=== PATIENT | male | born 1955 | race Caucasian/White ===

== ENCOUNTER 2023-08-14 10:30 | Outpatient (CLI) | payer MEDICARE, MEDICAID | END 2023-08-14 10:31 | disposition home or self-care (01) | LOC: CSHWCC 10:30 | PROVIDERS: ATTEND Physician Assistant | DX: I89.0 Lymphedema, not elsewhere classified (principal) | CPT/HCPCS: 99205; G0463 ==

== ENCOUNTER 2023-09-14 11:35 | Outpatient (CLI) | payer MEDICARE, MEDICAID | END 2023-09-14 11:36 | disposition home or self-care (01) | LOC: CSHWCC 11:35 | PROVIDERS: ATTEND Preventive Medicine Undersea and Hyperbaric Medicine | DX: I89.0 Lymphedema, not elsewhere classified (principal) | CPT/HCPCS: 97597; 97598 ==

== ENCOUNTER 2023-09-16 11:51 | Outpatient (CLI) | payer MEDICARE, MEDICAID | END 2023-09-16 11:52 | disposition home or self-care (01) | LOC: CSHWCC 11:51 | PROVIDERS: ATTEND Preventive Medicine Undersea and Hyperbaric Medicine | DX: I89.0 Lymphedema, not elsewhere classified (principal) | CPT/HCPCS: 97597; 97598 ==

== ENCOUNTER 2023-10-06 10:34 | Outpatient (CLI) | payer MEDICARE, MEDICAID, OTHER | END 2023-10-06 10:35 | disposition home or self-care (01) | LOC: CSHWCC 10:34 | PROVIDERS: ATTEND Physician Assistant | DX: I87.313 Chronic venous hypertension (idiopathic) with ulcer of bilateral lower extremity (principal); L97.919 Non-pressure chronic ulcer of unspecified part of right lower leg with unspecified severity; L97.929 Non-pressure chronic ulcer of unspecified part of left lower leg with unspecified severity; I89.0 Lymphedema, not elsewhere classified | CPT/HCPCS: 29581 ==

== ENCOUNTER 2023-12-03 08:42 | Outpatient (CLI) | payer MEDICARE | END 2023-12-03 08:43 | disposition home or self-care (01) | LOC: CSHWCC 08:42 | PROVIDERS: ATTEND Nurse Practitioner Family | DX: I87.311 Chronic venous hypertension (idiopathic) with ulcer of right lower extremity (principal); I89.0 Lymphedema, not elsewhere classified; L97.211 Non-pressure chronic ulcer of right calf limited to breakdown of skin; E66.01 Morbid (severe) obesity due to excess calories | CPT/HCPCS: 99214; G0463 ==

== ENCOUNTER 2023-12-17 15:57 | Outpatient (CLI) | payer MEDICARE | END 2023-12-17 15:58 | disposition home or self-care (01) | LOC: CSHWCC 15:57 | PROVIDERS: ATTEND Nurse Practitioner Family | DX: I87.311 Chronic venous hypertension (idiopathic) with ulcer of right lower extremity (principal); L97.211 Non-pressure chronic ulcer of right calf limited to breakdown of skin; I89.0 Lymphedema, not elsewhere classified; E66.01 Morbid (severe) obesity due to excess calories | CPT/HCPCS: 11042; 29581 ==

== ENCOUNTER 2024-04-19 11:29 | Outpatient (CLI) | payer MEDICARE, MEDICAID | END 2024-04-19 11:30 | disposition home or self-care (01) | LOC: CSHWCC 11:29 | PROVIDERS: ATTEND Nurse Practitioner Family | DX: I87.313 Chronic venous hypertension (idiopathic) with ulcer of bilateral lower extremity (principal); L97.211 Non-pressure chronic ulcer of right calf limited to breakdown of skin; L97.222 Non-pressure chronic ulcer of left calf with fat layer exposed; I89.0 Lymphedema, not elsewhere classified; E66.01 Morbid (severe) obesity due to excess calories ==